=== PATIENT | female | born 1960 | race Caucasian/White ===

== ENCOUNTER 2022-09-23 20:51 | Emergency (ER) | payer OTHER ==
[~2022-09-23] VITALS: Ht 157.5 cm; Wt 47.6 kg
[2022-09-23 21:32] VITALS: TEMP 98.3
--- NOTE | 2022-09-23 21:32 | NUR ---
BIBSELF FROM HOME C/O DOG BITE TO R 4TH DIGIT. -BLOODTHINNERS, TDAP NOT UTD DOGS RABIES VACCINTE UTD. PT A/OX4. TOLERATING R/A WELL WITH NO RESP DISTRESS.
[2022-09-23] MEDS ORDERED: AMOX-430 PO ×2 (22:27→22:32)
[2022-09-23] MEDS ORDERED: TDAP [DIPH/PERTUSSIS/TET] 0.5 ML VIAL IM ONE ×2 (22:29→22:30)
[2022-09-23] MEDS ORDERED: AMOX/CLAVULANATE 875 MG TABLET ONE (22:29)
[2022-09-23] MEDS ORDERED: AMOX/CLAVULANATE 875 MG TABLET PO ONE (22:30)
[2022-09-23] MEDS ORDERED: BACITRACIN ZINC OINT PACKET 1 EA PACKET TP ONE (22:30)
--- NOTE | 2022-09-23 22:39 | NUR ---
EMT AT PT'S BEDSIDE FOR WOUND CARE
[2022-09-23 22:49] VITALS: BP 119/69
--- NOTE | 2022-09-23 22:49 | NUR ---
Patient discharged to home in stable condition. Written and verbal after care instructions given. Patient verbalizes understanding of instruction.
== END 2022-09-23 22:50 | disposition home or self-care (01) ==
LOC: ER 21:08
DX: S61.214A Laceration without foreign body of right ring finger without damage to nail, initial encounter (principal); S61.254A Open bite of right ring finger without damage to nail, initial encounter; Z79.2 Long term (current) use of antibiotics; W54.0XXA Bitten by dog, initial encounter; Y93.89 Activity, other specified; Y92.89 Other specified places as the place of occurrence of the external cause; Y99.8 Other external cause status
CPT/HCPCS: 90715